=== PATIENT | female | born 1990 | race Caucasian/White ===

== ENCOUNTER 2017-12-07 23:22 | Inpatient (IN) | END 2017-12-08 23:59 | disposition home or self-care (01) | DRG 780 ==

== ENCOUNTER 2017-12-23 23:00 | Inpatient (IN) | END 2017-12-26 21:30 | disposition home or self-care (01) | DRG 775 ==

== ENCOUNTER 2018-01-18 17:47 | Emergency (ER) | END 2018-01-18 19:51 | disposition left against medical advice (07) ==

== ENCOUNTER 2018-01-20 08:40 | Emergency (ER) | END 2018-01-20 11:25 | disposition home or self-care (01) ==